=== PATIENT | male | born 2000 | race Caucasian/White ===

== ENCOUNTER 2023-01-04 15:08 | Emergency (ER) | payer MEDICAID ==
[~2023-01-04] VITALS: Ht 172.7 cm; Wt 131.5 kg
[2023-01-04 15:16] VITALS: BP_SYST 135
[2023-01-04] MEDS ORDERED: AUG875 PO (15:20)
[2023-01-04] MEDS ORDERED: DEC4 PO (15:20)
== END 2023-01-04 15:27 | disposition home or self-care (01) ==
LOC: SED 15:08
DX: J02.0 Streptococcal pharyngitis (principal); R05.9 Cough, unspecified; R50.9 Fever, unspecified; R51.9 Headache, unspecified; Z79.899 Other long term (current) drug therapy
CPT/HCPCS: 99283